=== PATIENT | female | born 1960 | race Caucasian/White ===

== ENCOUNTER 2020-05-17 16:44 | Outpatient (REF) | payer OTHER, SELFPAY ==
--- NOTE | 2020-05-17 16:49 | XR_ITS ---
EXAMINATION: XR CHEST CLINICAL INFORMATION: Cough COMPARISON: None TECHNIQUE: 2 views of the chest were obtained. FINDINGS: The lungs are well expanded. There is no focal consolidation, edema, or effusion. There is mild bronchial wall thickening. No pneumothorax. The cardiomediastinal silhouette is within normal limits. No acute osseous abnormality. Mild degenerative changes in the spine. IMPRESSION: No consolidation. Bronchial wall thickening can be seen with a small airways process such as asthma or atypical/viral infection.
== END 2020-05-17 16:45 | disposition home or self-care (01) ==
LOC: HO.HMGCX 16:44
PROVIDERS: PCP Hospitalist; Visit Provider Hospitalist
DX: R05 Cough (principal)
CPT/HCPCS: 71046

== ENCOUNTER 2020-07-04 15:41 | Emergency (ER) | payer OTHER, SELFPAY ==
[2020-07-04 15:59] VITALS: BP 158/71; PULSE 70; RESP 16; TEMP 36.7; O2SAT 97; BMI 82.0
--- NOTE | 2020-07-04 17:56 | CT_ITS ---
EXAMINATION: CT FACIAL BONES WITHOUT CONTRAST CLINICAL INFORMATION: Pain status post injury COMPARISON: None TECHNIQUE: Multidetector volumetric imaging of the facial bones is performed without IV contrast. Coronal and sagittal reformatted images are obtained and reviewed. This CT examination was performed using dose optimization techniques as appropriate, variously including the following: *Automated exposure control *Adjustment of mA and/or kV according to patient size (this includes techniques or standardized protocols for targeted exams where dose is matched to indication/reason for exam; i.e. extremities or head) *Use of iterative reconstruction technique DLP: 292 mGy-cm FINDINGS: There is mild left supraorbital soft tissue swelling. There is no acute maxillofacial fracture. The pterygoid plates are intact. The zygomatic arches are intact. The lamina papyracea are intact. The orbital rims are intact. The paranasal sinuses are well-aerated. No air-fluid levels are seen. There is no significant deviation of the nasal septum. The ostiomeatal complexes are clear. The lamina papyracea are intact. The ethmoid roofs are symmetric. The carotid canals are normally covered by bone. The patient is edentulous. The mastoid air cells and visualized middle ear cavities are well-aerated. The orbits are normal. The TMJs are unremarkable. The imaged portions of the brain demonstrate no acute abnormality. CT/CT facial bones wo con IMPRESSION: No acute intracranial process or discrete facial bone fracture. Minimal left supraorbital soft tissue swelling.
--- NOTE | 2020-07-04 19:10 | ED_ITS ---
HPI - Head Injury General Chief complaint: Head Injury Stated complaint: head injury Time Seen by Provider: 07/04/20 17:56 Source: patient Mode of arrival: ambulatory Limitations: no limitations History of Present Illness HPI Narrative: Left side facial pain s/p injury. States her 70 lbs pound dog ran into her hitting the left side of her face/ cheek with head and has been having pain in the area since. No loc. No head injury, no fall. MD Complaint: other (facial injury ) Place: home Loss of Consciousness: no Location of injury: face Severity: moderate Quality: aching Radiation: none Other Injuries: none Associated symptoms: denies other symptoms Related Data Home Medications Medication Instructions Recorded Confirmed albuterol sulfate 90 mcg/actuation INHALATION 05/17/20 aerosol inhaler cetirizine 10 mg tablet 10 mg PO DAILY 05/17/20 flu vac [id number] 36mos up(PF) ml IM ONCE 05/17/20 prednisone 20 mg tablet 20 mg PO DAILY 05/17/20 Previous Rx's Medication Instructions Recorded doxycycline hyclate 100 mg tablet 100 mg PO BID #14 tab 05/17/20 prednisone 20 mg tablet 20 mg PO .COMPLEX #18 tab 05/17/20 Allergies Allergy/AdvReac Type Severity Reaction Status Date / Time latex [LATEX] Allergy Unknown RASH Unverified 04/18/20 15:34 penicillin V Allergy Unknown trouble Unverified 02/19/20 00:00 breathing Penicillins Allergy Unknown UNKNOWN Unverified 04/18/20 15:34 Latex Allergy Unknown hives Uncoded 02/19/20 00:00 ,itchiness Latex Gloves Allergy Unknown unknown Uncoded 05/17/20 16:38 Review of Systems Review of Systems: Constitutional: No Weight loss, No Fever, No Chills, No Night Sweats, No Fatigue, No Malaise ENT/Mouth: No Hearing loss, No Ear Pain, No Nasal Congestion, No Sinus Pain, No Hoarseness, No sore throat, No Rhinorrhea, No Swallowing Difficulty Eyes: No Eye Pain, No Swelling, No Redness, No Foreign Body, No Discharge, No Vision Changes Cardiovascular: No Chest Pain, No SOB, No Dyspnea on Exertion, No Orthopnea, No Edema, No Palpitations Respiratory: No Cough, No Sputum, No Wheezing, No Smoke Exposure, No Dyspnea Musculoskeletal: No joint pain, No Myalgias, No Joint Swelling Skin: No Skin Lesions, No rash Neuro: No Weakness, No Numbness, No Paresthesias, No Loss of Consciousness, No Dizziness, No Headache Psych: No Social Issues Heme/Lymph: No Bruising, No Bleeding,No Lymphadenopathy Endocrine: No Polyuria, No Polydipsia, No Temperature Intolerance Yes all other systems are reviewed and are negative [facility] Past Medical History Medical History (Updated 07/04/20 @ 19:14 by Jacob Bagley NP) Allergies Asthma Diverticulitis Surgical History (Updated 07/04/20 @ 16:03 by Sola Quintana RN) History of bowel resection Social History Social History Alcohol intake: never Smoking Status: Never smoker Smoked in Last 30 Days: No Use of substances other than those prescribed or required for medical reasons: No Advance Directives: No Advance Directives Information Provided: No Physical Exam Vital Signs: Vital Signs: Last Vital Signs Temp 98.1 F 07/04/20 15:59 Pulse 70 07/04/20 15:59 Resp 16 07/04/20 15:59 BP 158/71 H 07/04/20 15:59 Pulse Ox 97 07/04/20 15:59 Body Mass Index 82.0 Reviewed Const: General: cooperative and healthy appearing; No acute distress or intoxicated appearing Nutritional Appearance: average body habitus Orientation/consciousness: patient oriented x3 HENMT: Head: Yes normal to inspection Ears: hearing grossly normal bilaterally Face images: 1. slight area of ecchymosis. No obvious deformity. Positive tender palpation. Able to fully open mouth without any pain or clicking sound. No tender palpation in the orbital area. Eyes: General: appearance normal, both eyes and all related structures Visual Squires: normal visual squires by confrontation Neck: Neck: Yes normal visual inspection, No positive Brudzinski's sign, No positive Kernig's sign and No tender Thyroid: Thyroid normal Chest: Chest palpation & inspection: normal inspection of the chest Resp: Effort & Inspection: normal respiratory effort Cardio: Jugular venous distension: no JVD Skin: General skin exam: no rashes or lesions noted Neuro: General: patient oriented x3 Extrem: General: Yes normal to inspection Course Course Course Narrative: AP consistent contusion type injury suspicion for fracture low findings reviewed with patient however states that she has high threshold for pain but she is having pain and would feel more comfortable with imaging. risk versus benefits of radiation versus expected outcome reviewed with patient in detail. States she would feel more comfortable doing the imaging. Maxillofacial CT ordered. Discharge Plan Discharge Clinical Impression: Facial injury, Contusion Patient Disposition: Home, Self-Care Instructions: Facial Contusion (ED) Additional Instructions: a CT scan of your face did not show any acute bony fracture You have a bruise to the face Gentle compresses Tylenol or ibuprofen as tolerated Return if any concerns or worsening symptoms Thank you Prescriptions: No Action albuterol sulfate 90 mcg/actuation HFA aerosol inhaler inhalation RF: 0 cetirizine 10 mg tablet 10 mg PO DAILY RF: 0 Afluria Qd 2019-(3yr up)(PF) 60 mcg (15 mcg x 4)/0.5 mL syringe IM ONCE RF: 0 prednisone 20 mg tablet 20 mg PO DAILY RF: 0 prednisone 20 mg tablet 20 mg PO .COMPLEX Qty: 18 RF: 0 doxycycline hyclate 100 mg tablet 100 mg PO BID Qty: 14 RF: 0 Referrals: ED Physician,Generic [Emergency Provider] - 1 week (As needed )
[2020-07-04 19:35] VITALS: BP 146/70; PULSE 73; RESP 16; TEMP 36.7; O2SAT 97
== END 2020-07-04 19:56 | disposition home or self-care (01) ==
PROVIDERS: Emergency Provider Internal Medicine; PCP Nurse Practitioner Family
DX: S00.83XA Contusion of other part of head, initial encounter (principal); W54.1XXA Struck by dog, initial encounter; Y93.9 Activity, unspecified; Y92.019 Unspecified place in single-family (private) house as the place of occurrence of the external cause; Y99.9 Unspecified external cause status
CPT/HCPCS: 70486; 99284

== ENCOUNTER 2022-05-07 07:57 | Day surgery (SDC) | payer OTHER, SELFPAY ==
--- NOTE | 2022-05-06 10:54 | HP_ITS ---
DATE OF SERVICE: 05/07/2022 PREOPERATIVE DIAGNOSIS: Plantar fasciitis, right foot. PLANNED PROCEDURE: Right foot Trappe plantar fasciotomy. PAST MEDICAL HISTORY: Diverticulitis, headaches, migraines, chronic sinusitis, measles, mumps, chickenpox. CURRENT MEDICATIONS: Elderberry, iron, calcium, flaxseed, Systane, MiraLAX, probiotic, ipratropium bromide, gabapentin, and ciclopirox. SURGICAL HISTORY: Partial hysterectomy, deviated septum, gallbladder tonsillectomy, sigmoidectomy. FAMILY HISTORY: Poor circulation, arthritis, hypertension, cancer, diabetes, heart disease. SOCIAL HISTORY: Patient is a nonsmoker. Denies any illicit drug use. 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 She is with 2 children. ALLERGIES: PENICILLIN, ADHESIVES, LATEX, MOLD, AND FUNGUS. HOSPITALIZATIONS: Denies. REVIEW OF SYSTEMS: Within normal limits. HISTORY OF PRESENT ILLNESS: This is a 61-year-old female presents with pain, tenderness, stiffness in her right plantar proximal heel. It has been present for several months, getting progressively worse significantly with her job and standing. She has tried rest, ice, stretching, orthotics, cortisone injections, physical therapy, and Feldene medication that has not relieved her symptoms. PHYSICAL EXAMINATION: GENERAL: Reveals a pleasant, alert, well-nourished, well-developed, well-hydrated individual who demonstrates proper attention to body habitus, in no acute distress. She is oriented x3. NEUROLOGICAL: Exam reveals intact sensorium. Pain sensation is normal. Vibratory sensation is intact. Pinprick sensation is normal. VASCULAR: DP and PT pulses are 3/4 bilaterally. Capillary refill is immediate to all digits. Skin temperature, elasticity, and turgor is normal. Pigmentation is normal. There is no edema. DERMATOLOGICAL: Exam reveals normal texture, elasticity, and turgor. There are no masses. The interspaces are clear. Heel pain right foot reveals pain on palpation of the plantar fascia, medial and central bands, intrinsic musculature, infracalcaneal bursa, and medial calcaneal tubercle. No pain to the posterior and superior heel, Achilles bursa or tendon, sinus tarsi, peroneal or lateral heel compression. ORTHOPEDIC: Muscle strength is 5/5 in a symmetrical fashion bilaterally. Gait abnormality is antalgic. Foot morphology, there is pes planus structure with decreased ankle joint range of motion with the knee extended. PLAN: Patient is scheduled for surgery. Surgical procedures to treat the patient's foot problem discussed in detail, reviewed the risks of the procedure versus not having the procedure, the potential surgical complications including, but not limited to, pain, swelling, bleeding scarring numbness, infection, delayed or nonhealing, recurrence, failure of the procedure, need for further surgery, as well as loss of toe, foot, life, or limb. The patient indicated a full understanding. Discussed use of IV and local anesthesia and the usual postoperative course. No guarantees were given. We decided on performing a Trappe right plantar fasciotomy based on the patient's complaints, medical and social history and physical exam. The patient would like to proceed with surgical treatment. She will obtain preoperative labs as well as medical clearance for surgery and anesthesia. She is made aware to stop any and all blood thinners at least 1 week prior to surgery and aware of the fact driving and allowed during a portion of the postoperative period. The patient was given a prescription for Percocet. She can take for breakthrough pain. Patient is to avoid any NSAIDs or anti-inflammatories postoperatively and ice. She was given a surgical cast boot to wear postoperatively and to avoid significant weightbearing on the foot postoperatively. KELLY Redmond / [phone]
[2022-05-06 11:13] VITALS: BMI 36.8
--- NOTE | 2022-05-06 11:22 | HO.ANESPROP2 ---
Documented by User: Kat Rock NP 05/06/22 11:23 HPI - Anesthesia Eval Consult details Narrative: 61yo F for Right Plantar Fasciotomy w/ [place] PCP cleared PMFSH Active Problems Active Problems: All Active Problems (Updated 07/05/20 @ 00:01 by Background Dazoltan) Cough (Acute) Past Medical History Medical History (Updated 07/05/20 @ 00:01 by Background Daegovanion) Allergies Asthma Diverticulitis Surgical History Surgical History (Updated 05/07/22 @ 08:16 by Aleyda Arana RN) History of bowel resection History of cholecystectomy History of partial hysterectomy History of tonsillectomy S/P correction of deviated nasal septum Social History Social History Alcohol intake: never Patient Tobacco Use Status: Never used Tobacco Use of substances other than those prescribed or required for medical reasons: No Are you DNR?: No Advance Directives: No Advance Directives Information Provided: Yes Meds Allergies Allergy/AdvReac Type Severity Reaction Status Date / Time latex [LATEX] Allergy Intermediate Rash Verified 05/07/22 08:14 Penicillins Allergy Intermediate Anaphylaxis Verified 05/07/22 08:14 mushroom Allergy Anaphylaxis Verified 05/07/22 08:55 vancomycin AdvReac Redness of Verified 05/07/22 10:38 Skin Active Medications: Current Medications Vancomycin HCl 1,000 mg/ (Sodium Chloride) 270 mls @ 270 mls/hr IV PREOP ONE Stop: 05/06/22 09:41 Pharmacy Consult (Consult Rx Vancomycin Dosing) 1 each MISCELLANE DAILY PRN PRN Reason: Consult order Home Medications Medication Instructions Recorded Confirmed Last Taken Type Flonase NOSTRIL-L DAILY 05/07/22 Unknown History docusate sodium 100 mg capsule 1 cap PO BID PRN constipation 05/07/22 05/07/22 05/07/22 History gabapentin 100 mg capsule 100 mg PO QID 05/07/22 05/07/22 05/07/22 History omeprazole 40 mg capsule,delayed 1 cap PO BID 05/07/22 05/07/22 05/07/22 History release sucralfate 1 gram tablet 1 tab PO QID 05/07/22 05/07/22 05/07/22 History Exam Exam Date and Time: May 06, 2022 1122 Height,Weight and Vital Signs: Height 5 ft 2.99 in Weight 94.3 kg Assessment and Plan Assessment Anesthesia Assessment: Chart Reviewed Documented by User: Rolando Mendoza MD 05/07/22 16:29 [facility] Past Medical History Medical History (Updated 07/05/20 @ 00:01 by Katerina Betts) Allergies Asthma Diverticulitis Functional capacity: independent ambulation Family History Family history of problems with anesthesia: No Surgical History Surgical History (Updated 05/07/22 @ 08:16 by Aleyda Arana RN) History of bowel resection History of cholecystectomy History of partial hysterectomy History of tonsillectomy S/P correction of deviated nasal septum History of Problems with Anesthesia: No Social History Social History Alcohol intake: never Patient Tobacco Use Status: Never used Tobacco Use of substances other than those prescribed or required for medical reasons: No Are you DNR?: No Advance Directives: No Advance Directives Information Provided: Yes Meds Allergies Allergy/AdvReac Type Severity Reaction Status Date / Time latex [LATEX] Allergy Intermediate Rash Verified 05/07/22 08:14 Penicillins Allergy Intermediate Anaphylaxis Verified 05/07/22 08:14 mushroom Allergy Anaphylaxis Verified 05/07/22 08:55 vancomycin AdvReac Redness of Verified 05/07/22 10:38 Skin Home Medications Medication Instructions Recorded Confirmed Last Taken Type Flonase NOSTRIL-L DAILY 05/07/22 Unknown History docusate sodium 100 mg capsule 1 cap PO BID PRN constipation 05/07/22 05/07/22 05/07/22 History gabapentin 100 mg capsule 100 mg PO QID 05/07/22 05/07/22 05/07/22 History omeprazole 40 mg capsule,delayed 1 cap PO BID 05/07/22 05/07/22 05/07/22 History release sucralfate 1 gram tablet 1 tab PO QID 10/06/22 10/06/22 10/06/22 History Exam Airway Mallampati Class: III TM Dist: >3cm Denture: Upper and Lower Loose/Missing/Broken Teeth: Yes Heart: S1,S2 Lungs: b/l breath sounds Assessment and Plan Assessment Anesthesia Assessment: Anesthesia Plan Discussed Final Anesthetic Review Family History of Problems with Anesthesia: No History of Problems with Anesthesia: No NPO: Yes ASA Class: III Final Preanesthetic Review: Meds/Allgs Chart Reviewed, Consent Obtained/Reviewed and Anes Risks/Benef Reviewed Patient Risk: Intermediate Procedure Risk: Intermediate Anesthetic Plan Anesthetic Plan: MAC: Disposition: Standard PACU
[2022-05-07] VITALS (11 sets, daily range): BP systolic 100–146; BP diastolic 60–93; PULSE 59–89; RESP 15–20; TEMP 36.5–36.7; O2SAT 94–100; BMI 36.0
[2022-05-07] MEDS: Lactated Ringers 1,000 ML 100 ML IVCONT (08:42)
[2022-05-07] MEDS: vancomycin HCL 1,500 MG in 0.9 % Sodium Chloride 500 ML 333.33 MG IV (08:43)
--- NOTE | 2022-05-07 10:21 | PC.NURSE ---
patients vancomycin just finished and complained of itching from the chest,back and hed. patient is bright red. no sob or resp distress, lungs clear. no tingling or scratchy throat per patient. anesthesia by the bedside.
[2022-05-07] MEDS: Famotidine/PF 20 MG in 0.9 % Sodium Chloride 50 ML 200 MG IV (10:32)
--- NOTE | 2022-05-07 10:36 | MHC.SHP ---
Pre-Procedural Eval Section A Date of Service: 05/07/22 The patient is an INPATIENT: No Changes since office visit: No Cold of Flu in the past 2 weeks, No New Medical Problems, No Changes in Medication and No Patient answered all questions The History & Physical has been completed within 30 days and I have reviewed it.: Yes Section B Chief Complaint: Plantar fascial fibromatosis Allergies: Allergies Allergy/AdvReac Type Severity Reaction Status Date / Time latex [LATEX] Allergy Intermediate Rash Verified 05/07/22 08:14 Penicillins Allergy Intermediate Anaphylaxis Verified 05/07/22 08:14 mushroom Allergy Anaphylaxis Verified 05/07/22 08:55 Plan I have reviewed the history and physical and performed a pertinent physical examination on my patient. No changes have occurred unless specified.
--- NOTE | 2022-05-07 10:37 | PC.NURSE ---
decreased redness and decreased itching after being medicated per md order. no sob or resp distress.
--- NOTE | 2022-05-07 11:20 | PM.OP ---
Brief Operative Note Date of Service: 05/07/22 Pre-op diagnosis: Right plantar fasciitis Post-op diagnosis: same Procedure: Right topaz plantar fasciotomy Surgeon: Krista Stevenson Anesthesia: MAC and local Estimated blood loss (mL): 1 Tourniquet time (min): 8 Pathology: none sent Condition: stable Disposition: PACU
--- NOTE | 2022-05-08 09:45 | OP_ITS ---
SURGEON: Krista Stevenson DPM PREOPERATIVE DIAGNOSIS: Plantar fasciitis, right foot. POSTOPERATIVE DIAGNOSIS: Plantar fasciitis, right foot. PROCEDURE PERFORMED: Right foot Stites plantar fasciotomy. ESTIMATED BLOOD LOSS: Less than 1 cc. COMPLICATIONS: None. ANESTHESIA: Monitored anesthetic care with local consisting preoperatively of 24 cc of 0.5% bupivacaine and 2% lidocaine plain . SOAP PRESS FEEDER: None. SPECIMENS: None HEMOSTASIS: Pneumatic ankle tourniquet set at 250 mmHg for 8 minutes. INDICATIONS FOR SURGERY: Patient has had painful plantar fasciitis noted to the right foot for sometime. The patient has failed multiple conservative therapies. The above-mentioned surgery was discussed in detail with patient including risks, benefits, and possible complications. No guarantees were given, and written and oral informed consent was obtained. DESCRIPTION OF PROCEDURE: The patient was brought to the operating room, placed on the operating table in the supine position. The right foot was then anesthetized with the above-mentioned local anesthetic in a regional field block fashion. Vancomycin was administered as a preoperative prophylactic antibiotic in the preop area. The right foot was then scrubbed, prepped, and draped in a sterile manner. Attention was directed to the right foot where the foot was exsanguinated and a pneumatic ankle tourniquet was inflated to 250 mmHg. Attention was then directed to the plantar aspect of the right heel, where preoperatively areas of tenderness were denoted. A grid was then placed, was then marked on the plantar foot about 0.5 cm apart overlying the areas of maximal tenderness of the medial and central bands of the plantar fascia. A 0.062 K-wire was then introduced to each marked area to make a percutaneous hole and the Stites wand was introduced through each hole with areas of maximal tenderness using the Stites wand more than once. The Stites wand was removed in total. The foot was then wiped with sterile saline. The foot was then dressed with Betadine, Xeroform, 4 x 4s, fluffs, Ace, cast padding, ABD and an Abhishek bandage. Pneumatic ankle tourniquet was deflated after 8 minutes. Prompt capillary refill was noted to all 5 digits. The patient tolerated procedure and anesthesia well. She was transferred to recovery room with vital signs stable and vascular status at preoperative levels. Following a period of postoperative recovery, the patient will be discharged home with written and oral postop instructions. The patient is given a cast boot. She will get crutches as needed to reduce weightbearing on the right foot, and the patient is to avoid any anti-inflammatories including NSAIDs and ice postoperatively. Krista Stevenson DPM LP/MAUDE / [id number] MEGHAN
== END 2022-05-07 16:40 | disposition home or self-care (01) ==
PROVIDERS: PCP Family Medicine; Visit Provider Podiatrist
PROC: (CPT 28008; principal; 2022-05-07 10:10)
DX: M72.2 Plantar fascial fibromatosis (principal); J45.909 Unspecified asthma, uncomplicated; G47.33 Obstructive sleep apnea (adult) (pediatric); E55.9 Vitamin D deficiency, unspecified; Z99.89 Dependence on other enabling machines and devices; Z79.899 Other long term (current) drug therapy; Z98.890 Other specified postprocedural states
CPT/HCPCS: 28008; J1100; J1200; J2250; J3370

== ENCOUNTER 2023-02-15 18:21 | Emergency (ER) | payer OTHER, SELFPAY ==
--- NOTE | ~2023-02-15 | XR_ITS ---
EXAMINATION: XR CHEST CLINICAL INFORMATION: Cough COMPARISON: Previous chest x-ray most recent May 2020 TECHNIQUE: 2 views of the chest were obtained. FINDINGS: The cardiac and mediastinal contours are stable. The lungs are clear. No pleural effusion or pneumothorax. Degenerative changes of the spine XR/XR chest 2V IMPRESSION: No evidence of acute disease in the chest.
[2023-02-15 20:31] VITALS: BP 154/82; PULSE 74; RESP 18; TEMP 36.6; O2SAT 99; BMI 36.3
--- NOTE | 2023-02-15 20:31 | ED_ITS ---
HPI - General Adult General Chief complaint: Upper Respiratory Symptoms Stated complaint: sent from urgent care acute bronchitis, COVID + Related Data Home Medications Medication Instructions Recorded Confirmed Flonase NOSTRIL-L DAILY 05/07/22 docusate sodium 100 mg capsule 1 cap PO BID PRN constipation 05/07/22 05/07/22 gabapentin 100 mg capsule 100 mg PO QID 05/07/22 05/07/22 omeprazole 40 mg capsule,delayed 1 cap PO BID 05/07/22 05/07/22 release sucralfate 1 gram tablet 1 tab PO QID 05/07/22 05/07/22 Allergies Allergy/AdvReac Type Severity Reaction Status Date / Time latex [LATEX] Allergy Intermediate Rash Verified 05/07/22 08:14 Penicillins Allergy Intermediate Anaphylaxis Verified 05/07/22 08:14 mushroom Allergy Anaphylaxis Verified 05/07/22 08:55 vancomycin AdvReac Redness of Verified 05/07/22 10:38 Skin PMFSH Past Medical History Medical History (Updated 02/18/23 @ 19:48 by ISAAC Jack) Allergies Asthma Diverticulitis Surgical History (Updated 05/07/22 @ 08:16 by Aleyda Arana RN) History of bowel resection History of cholecystectomy History of partial hysterectomy History of tonsillectomy S/P correction of deviated nasal septum Social History Social History Alcohol intake: never Patient Tobacco Use Status: Never used Tobacco Advance Directives: No Advance Directives Information Provided: No Physical Exam ED Vital Signs: BMI result Body Mass Index 36.3 Course Course Course Narrative: This is an RME: Additional HPI, ROS, PE not included below will be deferred to primary provider. This is a [id number], hx of JULIA on bipap, asthma, presenting to the ER with complaints of cough and shortness of breath. She was dx with acute bronchitis and ear infection at [facility] on 02/07/2023, was given albuterol, prednisone and tessalon perles. Was seen on 02/10/23 again as her symptoms have not improved and they tested her for flu and covid, and tested +covid. She states that last night she became shortness of breath, read her pulse oximeter which was 90%. No fevers or chills. Expiratory wheezing in left upper lobe, frequent coarse cough noted throughout triage. Plan: Labs, CXR ordered Reevaluation(s) Reevaluation #1: Patient eloped prior to being fully evaluated by primary provider Medical Decision Making Lab Data 02/15/23 21:08 02/15/23 21:08 Labs: Lab Results 02/15/23 02/15/23 Range/Units 21:08 21:08 WBC 9.5 (4.8-10.8) X10*3/uL RBC 4.70 (4.20-5.50) X10*6/uL Hgb 12.6 (12.0-16.0) g/dl Hct 40.3 (37.0-47.0) % MCV 85.7 (80.0-98.0) fL MCH 26.8 L (27.0-33.0) pg MCHC 31.3 (31.0-35.0) g/dl RDW 14.8 (11.0-16.0) % Plt Count 235 (160-400) X10*3/uL MPV 10.8 (9.4-12.3) fL Immature Gran % (Auto) 0.5 H (0.0-0.4) % Neut % (Auto) 57.4 (45-73) % Lymph % (Auto) 35.6 (20-40) % Sanders % (Auto) 4.6 (2-11) % Eos % (Auto) 1.5 (0-4) % Baso % (Auto) 0.4 (0-2) % Lymph # (Auto) 3.4 (1.2-4.9) X10*3/uL Sanders # (Auto) 0.4 (0.1-1.2) X10*3/uL Eos # (Auto) 0.1 (0.0-0.4) X10*3/uL Baso # (Auto) 0.0 (0.0-0.2) X10*3/uL Abs Immat Gran (auto) 0.05 H (0.00-0.03) X10*3/uL Absolute Neuts (auto) 5.4 (2.0-8.3) x10*3/uL Absolute Nucleated RBC 0.000 (0.0-0.012) X10*3/uL Nucleated RBC % (auto) 0.0 (0.0-0.2) /100WBC Sodium 143 (135-145) mmol/L Potassium 4.1 (3.3-5.1) mmol/L Chloride 107 (96-108) mmol/L Carbon Dioxide 25 (22-29) mmol/L Anion Gap 15 (12-20) BUN 16 (9-16) mg/dL Creatinine 1.01 (0.5-1.4) mg/dL Estim Creat Clear Calc 63.3 Estimated GFR 56 Random Glucose 96 (60-115) mg/dL Calcium 9.6 (8.4-10.2) mg/dL Magnesium 2.0 (1.6-2.6) mg/dL Total Bilirubin 0.4 (0.0-1.0) mg/dL Direct Bilirubin 0.2 (0.0-0.5) mg/dL AST 16 (5-31) U/L ALT 38 H (0-31) U/L Alkaline Phosphatase 113 (39-117) U/L Total Protein 7.2 (6.5-8.0) g/dL Albumin 4.2 (3.5-5.0) g/dL Discharge Plan Discharge Clinical Impression: Cough Patient Disposition: Elopement Prescriptions: No Action sucralfate 1 gram tablet 1 tab PO QID omeprazole 40 mg capsule,delayed release(DR/EC) 1 cap PO BID docusate sodium 100 mg capsule 1 cap PO BID PRN (Reason: constipation) gabapentin 100 mg capsule 100 mg PO QID Flonase NOSTRIL-L DAILY Rx Instructions: kun manley Interventions: ED Discharge Assessment Last Done: 02/16/23 03:45 Discharge Date/Time: 02/16/23 03:45
--- NOTE | 2023-02-15 21:13 | MHC.EDTECH ---
PATIENT URINE SAMPLE COLLECTED ,BLOOD DRAWN AND SENT TO LAB .
[2023-02-15 21:14] LABS: MANUAL DIFF FLAG NO
[2023-02-15 21:16] LABS: Basophils Percent Auto 0.4 % (0-2); Eosinophils Absolute Auto 0.1 X10*3/uL (0.0-0.4); Eosinophils Percent Auto 1.5 % (0-4); Hematocrit 40.3 % (37.0-47.0); Hemoglobin 12.6 g/dl (12.0-16.0); Imm Gran Abs Auto 0.05 X10*3/uL (0.00-0.03); Imm Gran Pct Auto 0.5 % (0.0-0.4); Lymphocytes Absolute Auto 3.4 X10*3/uL (1.2-4.9); Lymphocytes Percent Auto 35.6 % (20-40); Mean Corpuscular HGB Conc 31.3 g/dl (31.0-35.0); Mean Corpuscular Hemoglobin 26.8 pg (27.0-33.0); Mean Corpuscular Volume 85.7 fL (80.0-98.0); Mean Platelet Volume 10.8 fL (9.4-12.3); Monocytes Absolute Auto 0.4 X10*3/uL (0.1-1.2); Monocytes Percent Auto 4.6 % (2-11); Neutrophils Absolute Auto 5.4 x10*3/uL (2.0-8.3); Neutrophils Percent Auto 57.4 % (45-73); Platelet Count 235 X10*3/uL (160-400); Red Cell Distribution Width 14.8 % (11.0-16.0); White Blood Count 9.5 X10*3/uL (4.8-10.8)
[2023-02-15 21:31] LABS: Alanine Aminotransferase 38 U/L (0-31); Albumin Level 4.2 g/dL (3.5-5.0); Alkaline Phosphatase 113 U/L (39-117); Anion Gap 15 (12-20); Aspartate Amino Transferase 16 U/L (5-31); Bilirubin Direct 0.2 mg/dL (0.0-0.5); Bilirubin Total 0.4 mg/dL (0.0-1.0); Blood Urea Nitrogen 16 mg/dL (9-16); Calcium 9.6 mg/dL (8.4-10.2); Carbon Dioxide 25 mmol/L (22-29); Chloride 107 mmol/L (96-108); Creatinine Clr Calc Pharmacy 63.3; Estimated Glomerular Filt Rate 56; Glucose Random 96 mg/dL (60-115); Potassium 4.1 mmol/L (3.3-5.1); Sodium 143 mmol/L (135-145); Total Protein 7.2 g/dL (6.5-8.0)
[2023-02-16 02:50] VITALS: BP 147/66; PULSE 75; RESP 16; TEMP 36.1; O2SAT 99
[2023-02-16 03:37] LABS: Influenza A PCR NEGATIVE (Negative); Influenza B PCR NEGATIVE (Negative); Resp Syncy Virus RNA Qual PCR NEGATIVE (Negative); SARS COV2 PCR INHOUSE POSITIVE (Negative)
== END 2023-02-16 03:45 | disposition left against medical advice (07) ==
PROVIDERS: Physician Assistant Medical; Emergency Provider Emergency Medicine
DX: J20.9 Acute bronchitis, unspecified (principal); R05.9 Cough, unspecified; R06.02 Shortness of breath; Z79.899 Other long term (current) drug therapy; Z20.822 Contact with and (suspected) exposure to COVID-19; Z20.828 Contact with and (suspected) exposure to other viral communicable diseases
CPT/HCPCS: 0241U; 36415; 71046; 80048; 80076; 83735; 85025; 99282; 99283